=== PATIENT | male | born 1970 | race Caucasian/White ===

== ENCOUNTER 2018-03-22 14:24 | Emergency (ER) | payer BC ==
--- NOTE | 2018-03-22 14:57 | EDPHY ---
H & P Stated Complaint: R knee injury today while playing basketball. - Personal History Current Tetanus Diphtheria and Acellular Pertussis (TDAP): Yes Tetanus Vaccine Date: within 10 years - Medical/Surgical History Hx Asthma: No Hx Chronic Respiratory Disease: No Hx Diabetes: No Hx Cardiac Disease: No Hx Renal Disease: No Hx Cirrhosis: No Hx Alcoholism: No Hx HIV/AIDS: No Hx Splenectomy or Spleen Trauma: No Other PMH: GOUT DEPRESSION ANXIETY SHOULDER SURGERY 12/11/2013 ADHD, torn ACL R knee, bipolar 2 - Social History Smoking Status: Former smoker Time Seen by Provider: 03/22/18 14:46 HPI/ROS: Chief Complaint: Knee pain HPI: 47-year-old male was playing 1 on 1 basketball with his son. He went for a lay up and felt a pop in his right knee. He has a history of a 90% ACL tear in that knee which is not been repaired. He has had significant pain since then. Pain is primarily on the lateral aspect of his knee. He has not been able to ambulate secondary to pain. No other injuries. ROS: 10 systems were reviewed and were negative except those elements noted in the HPI. PMH: Gout, DVT, right ACL tear Social History: No smoking Family History: non-contributory Physical Exam: Gen: Awake, Alert, No Distress HEENT: Nose: no rhinorrhea Eyes: PERRLA, EOMI Mouth: Moist mucosa Ext: Mild knee swelling. He is able to flex past 10 90. Negative anterior drawer sign. Patient has pain with loading of the lateral collateral ligament. No meniscal pain with loading. Calf is soft and nontender. Neurologically intact in all dermatomes distally. Capillary refill less than 2 sec. 2+ dorsalis pedis pulses. Skin: no rash Neuro: CN II-XII intact, Sensation grossly intact, Strength 5/5 in bilateral upper and lower extremities (Hugo Girard) Constitutional: Initial Vital Signs Temperature (C) 36.5 C 03/22/18 14:34 Heart Rate 112 H 03/22/18 14:34 Respiratory Rate 18 03/22/18 14:34 Blood Pressure 149/96 H 03/22/18 14:34 O2 Sat (%) 96 03/22/18 14:34 O2 Delivery Mode Room Air Allergies/Adverse Reactions: bee Allergy (Uncoded 03/22/18 14:34) Pt reports swelling Home Medications: Medication Instructions Recorded clonazePAM [klonoPIN (RX)] 1 mg PO 01/16/14 Allopurinol [Allopurinol 100 MG 02/08/16 (*)] methYLPHENIDATE HCL [Ritalin 10mg 02/08/16 (*)] oxyCODONE/APAP 5/325 [Percocet 1 - 2 tab PO Q12H PRN #20 tab 03/22/18 5/325 (*)] predniSONE 03/22/18 Medical Decision Making - Diagnostics Imaging Results: Imaging Impressions Knee X-Ray 03/22/18 14:42 Impression: Nondisplaced avulsion fracture of the posterior tibial metaphysis. Findings discussed with Poornima Alvarado MD 03/22/2018 at 15:49. ED Course/Re-evaluation: Patient signed out to Dr. Alvarado pending x-ray results. (Hugo Girard) - Data Points Medications Given: Discontinued Medications Ibuprofen (Motrin) 600 mg PO EDNOW ONE Stop: 03/22/18 15:00 Last Admin: 03/22/18 15:10 Dose: 600 mg Departure - Departure Disposition: Home, Routine, Self-Care Clinical Impression: Posterior tibial plateau fracture Condition: Good Instructions: ACL Injury (ED), Swollen Knee Joint (ED) Additional Instructions: [facility] [address] Referrals: NONE *PRIMARY CARE P,. [Primary Care Provider] - As per Instructions Vitaly Pérez MD [Medical Doctor] - As per Instructions Prescriptions: oxyCODONE/APAP 5/325 [Percocet 5/325 (*)] 1 - 2 tab PO Q12H PRN #20 tab PRN Reason: Pain, Severe
[2018-03-22] MEDS ORDERED: IBUPROFEN 600 MG TAB PO ONE (14:59)
[2018-03-22] MEDS ORDERED: OXYCODONE/APAP 5/325MG PREPACK#4 BTL TAKEHOME ONE (16:41)
[2018-03-22] MEDS ORDERED: OXYCODONE/APAP 5/325 TAB PO ONE (16:42)
[2018-03-22 17:14] VITALS: BP 156/109
== END 2018-03-22 16:50 | disposition home or self-care (01) ==
LOC: CED 14:24
DX: S82.201A Unspecified fracture of shaft of right tibia, initial encounter for closed fracture (principal); M10.9 Gout, unspecified; F41.8 Other specified anxiety disorders; F90.9 Attention-deficit hyperactivity disorder, unspecified type; X50.9XXA Other and unspecified overexertion or strenuous movements or postures, initial encounter; Y93.67 Activity, basketball; Y92.9 Unspecified place or not applicable; Y99.9 Unspecified external cause status; Z87.891 Personal history of nicotine dependence
CPT/HCPCS: 73564-PO; L1830

== ENCOUNTER 2018-08-04 07:33 | Day surgery (SDC) | payer BC ==
[2018-08-04] MEDS ORDERED: NALOXONE HCL 0.4 MG/ML INJ IVP PRN (07:39)
[2018-08-04] MEDS ORDERED: FLUMAZENIL 0.5 MG/5 ML MDV IVP PRN (07:39)
[2018-08-04] MEDS ORDERED: MEPERIDINE 25 MG/ML SYR IVP PRN (07:39)
[2018-08-04] MEDS ORDERED: fentaNYL 100 MCG/2 ML INJ IVP PRN (07:39)
[2018-08-04] MEDS ORDERED: MIDAZOLAM 2 MG/2 ML VIAL IVP PRN (07:39)
[2018-08-04] MEDS ORDERED: NS 1,000 ML IV SCH (07:45)
--- NOTE | 2018-08-04 09:25 | PDRADPRE ---
Radiology History & Physical Indication for procedure: pain (RLE post thrombotic syndrome with swelling/pain ; plan for venogram and eval of pelvic veins for possible thrombectomy or stent placement) Home medications: clonazePAM [klonoPIN (RX)] 1 mg PO 01/16/14 [Last Taken Unknown] Allopurinol [Allopurinol 100 MG (*)] 02/08/16 [Last Taken Unknown] methYLPHENIDATE HCL [Ritalin 10mg (*)] 02/08/16 [Last Taken Unknown] predniSONE 03/22/18 [Last Taken Unknown] Allergies/Adverse Reactions: bee Allergy (Uncoded 03/22/18 14:34) Pt reports swelling Mental status: A&Ox3 Heart exam: regular rate and rhythm Lungs exam: clear to auscultation Mallampati Score: Class 2
--- NOTE | 2018-08-04 09:25 | PDPROPOC ---
Sedation Plan of Care Sedation Plan of Care: vital signs stable, mental status noted, patient educated of risks, benefits, alternatives, patient can tolerate sedation ASA Classification: ASA 2 Planned drugs: fentanyl, midazolam Mallampati Score: Class 2 Mallampati Reference Image: Patient passed 3-3-2 rule?: Yes
[2018-08-04] MEDS ORDERED: NALOXONE HCL 0.4 MG/ML INJ ONE (10:04)
[2018-08-04] MEDS ORDERED: MIDAZOLAM 2 MG/2 ML VIAL ONE ×2 (10:04→10:47)
[2018-08-04] MEDS ORDERED: fentaNYL 100 MCG/2 ML INJ ONE ×2 (10:04→10:47)
[2018-08-04] MEDS ORDERED: FLUMAZENIL 0.5 MG/5 ML MDV IVP ONE (10:04)
[2018-08-04] MEDS ORDERED: LIDOCAINE 1% 300 MG/30 ML SDV ONE (11:04)
[2018-08-04] MEDS ORDERED: IOPAMIDOL (ISOVUE-300) 100 ML BTL ONE (11:04)
[2018-08-04] MEDS ORDERED: OXYCODONE/APAP 5/325 TAB PO PRN (11:10)
[2018-08-04] MEDS ORDERED: ONDANSETRON 4 MG/2 ML VIAL IVP PRN (11:10)
--- NOTE | 2018-08-04 11:13 | PDRADPN ---
Radiology Procedure Note Date of Procedure: 08/04/18 Radiologist: Jean Marie Sena Anesthesia: IV Sedation Pre-op Diagnosis: Post thrombotic syndrome RLE DVT Post-op Diagnosis: Post thrombotic syndrome RLE DVT Indication: Post thrombotic syndrome RLE DVT Procedure: RLE/pelvic venography Finding(s): Unable to recanalize chronically thrombosed fempop vein. Common femoral and iliac veins patent supplied by superficial venous system. Inf/Abcess present in the surg proc area at time of surgery?: No
[2018-08-04 11:48] VITALS: BP 148/108
== END 2018-08-04 12:35 | disposition home or self-care (01) ==
LOC: FIMAGING 07:33
PROVIDERS: ATTEND Radiology Vascular & Interventional Radiology
PROC: B54BZZA Ultrasonography of Right Lower Extremity Veins, Guidance (ICD-10-PCS; principal; 2018-08-04 11:21)
PROC: B51B1ZA Fluoroscopy of Right Lower Extremity Veins using Low Osmolar Contrast, Guidance (ICD-10-PCS; principal; 2018-08-04 11:21)
DX: I82.531 Chronic embolism and thrombosis of right popliteal vein (principal); I82.511 Chronic embolism and thrombosis of right femoral vein; Z86.711 Personal history of pulmonary embolism; D68.2 Hereditary deficiency of other clotting factors; D68.52 Prothrombin gene mutation
CPT/HCPCS: 36012; 75820; 76937; 99152; 99153; C1758; C1769; C1894; J1644; J2250; J2310; J3010; Q9967